=== PATIENT | male | born 1950 | race Two or more races ===

== ENCOUNTER → 2018-04-14 | Outpatient (CLI) | payer OTHER, MEDICAID | END | disposition home or self-care (01) | LOC: Rad HDHVI 08:02 | PROVIDERS: ATTEND Internal Medicine | DX: I70.0 Atherosclerosis of aorta (principal); I07.1 Rheumatic tricuspid insufficiency; I10 Essential (primary) hypertension; E78.5 Hyperlipidemia, unspecified; R06.09 Other forms of dyspnea | CPT/HCPCS: 93306 ==

== ENCOUNTER → 2018-04-24 | Outpatient (CLI) | payer OTHER, MEDICAID ==
[~2018-04-24] VITALS: Ht 182.9 cm; Wt 124.7 kg
[~2018-04-24] MED LIST: ADENOSINE 105 MG in GIVE UN-DILUTED 0 ML IV ONE; ADENOSINE 90 MG/30 ML INJ IV ONE
== END | disposition home or self-care (01) ==
LOC: Rad HDHVI 08:15
PROVIDERS: ATTEND Internal Medicine Cardiovascular Disease
DX: I10 Essential (primary) hypertension (principal); E78.5 Hyperlipidemia, unspecified; R63.8 Other symptoms and signs concerning food and fluid intake; I87.2 Venous insufficiency (chronic) (peripheral); L03.119 Cellulitis of unspecified part of limb; M25.559 Pain in unspecified hip
CPT/HCPCS: 78452; 93005; 96374; 96375; A9500; J0153

== ENCOUNTER 2018-10-05 09:12 | Emergency (ER) | payer OTHER, MEDICAID ==
[~2018-10-05] VITALS: Ht 182.9 cm; Wt 117.0 kg
[2018-10-05 09:48] LABS: Urine Bacteria NONE SEEN /hpf (None Seen); Urine Blood Negative /uL (Negative); Urine Specific Gravity 1.021 (1.001-1.035); Urine WBC 1 /hpf (0 - 3)
[2018-10-05 09:59] LABS: Hematocrit 47.5 % (41.0-53.0); Hemoglobin 15.8 g/dL (13.5-17.5); Mean Corpuscular Hemoglobin 32.5 pg (28.0-32.0); Mean Corpuscular Hgb Conc. 33.3 g/dL (32.0-36.0); Mean Corpuscular Volume 97.6 fL (80.0-100.0); Platelet Count (auto) 184 10^3/uL (140-450); Red Blood Cells 4.86 10^6/uL (4.5-5.90); Red Cell Distribution Width 13.1 % (11.8-14.3); White Blood Cell 15.3 10^3/uL (4.4-10.8)
[2018-10-05 10:03] LABS: Basophils % (manual) 0 (0.0-2.0); Blast Cells 0; Eosinophils % (manual) 0 (0-7); Metamyelocytes % 0; Myelocytes % 0; Promyelocytes % 0
[2018-10-05 10:09] LABS: Alanine Aminotransferase 41 U/L (16-61); Albumin 3.8 g/dL (3.4-5.0); Anion Gap 5 (5-15); Blood Urea Nitrogen 23 mg/dL (7-18); Calcium 8.8 mg/dL (8.5-10.1); Carbon Dioxide 26 mmol/L (21-32); Chloride 106 mmol/L (98-107); Glucose 155 mg/dL (74-106); Potassium 4.6 mmol/L (3.5-5.1); Sodium 137 mmol/L (136-145)
[2018-10-05 10:14] LABS: Alkaline Phosphatase 90 U/L (45-117); Aspartate Aminotransferase 28 U/L (15-37); BUN/Creatinine Ratio 21.5; Bilirubin, Total 0.3 mg/dL (0.2-1.0); GFR African American 88 mL/min; GFR Non-African American 73 mL/min; Total Protein 7.2 g/dL (6.4-8.2)
[2018-10-05] MEDS ORDERED: IOHEXOL 350 MG/ML 100ML IJ ONE (10:25)
[2018-10-05 12:00] VITALS: BP 146/98
[2018-10-05] MEDS ORDERED: MORPHINE SULFATE 4 MG/ML SYR/VIAL IV ONE (12:00)
[2018-10-05] MEDS ORDERED: ONDANSETRON HCL 4 MG/2 ML VIAL IV ONE (12:00)
[2018-10-05] MEDS ORDERED: cefTRIAXone SOD 1,000 MG VL IM ONE (12:45)
[2018-10-05] MEDS ORDERED: LIDOCAINE 1%HCL (LOCAL ANESTH) 10 ML MDV ONE (13:02)
[2018-10-05] MEDS ORDERED: LIDOCAINE 1% HCL (LOCAL ANESTH.) INJ 20ML MDV ID ONE (13:15)
[2018-10-05 13:26] LABS: Band Neutrophils % (manual) 3; Lymphocytes % (manual) 38 (10.0-50.0)
[2018-10-05 13:27] LABS: Monocytes % (manual) 1 (0-12); Reactive Lymphocytes 2
== END 2018-10-05 13:19 | disposition home or self-care (01) ==
LOC: ER 09:12
DX: M54.5 Low back pain (principal); E11.9 Type 2 diabetes mellitus without complications; M79.18 Myalgia, other site
CPT/HCPCS: 36415; 74177; 80053; 81001; 84484; 85007; 85027; 93005; 94761; 96372; 99284; J0696; J2001; Q9967

== ENCOUNTER 2018-12-21 11:44 | Emergency (ER) | payer OTHER, MEDICAID ==
[~2018-12-21] VITALS: Ht 182.9 cm; Wt 117.0 kg
[2018-12-21 12:52] VITALS: BP 115/72
== END 2018-12-21 13:41 | disposition home or self-care (01) ==
LOC: ER 11:44
DX: J02.9 Acute pharyngitis, unspecified (principal); E11.9 Type 2 diabetes mellitus without complications
CPT/HCPCS: 71046; 93005

== ENCOUNTER → 2019-02-17 | Outpatient (CLI) | payer OTHER, MEDICAID | END | disposition home or self-care (01) | LOC: LAB 13:19 | PROVIDERS: ATTEND Internal Medicine | DX: R94.4 Abnormal results of kidney function studies (principal); E11.9 Type 2 diabetes mellitus without complications | CPT/HCPCS: 36415; 82565 ==

== ENCOUNTER → 2019-02-19 | Outpatient (CLI) | payer OTHER, MEDICAID ==
[~2019-02-19] MED LIST changes: -ADENOSINE 105 MG in GIVE UN-DILUTED 0 ML IV ONE; -ADENOSINE 90 MG/30 ML INJ IV ONE; +IOHEXOL 350 MG/ML 100ML IJ ONE
[2019-02-19 08:45] VITALS: BP 136/78
[2019-02-19 09:30] VITALS: BP 129/85
--- NOTE | 2019-02-19 09:30 | NUR ---
IN TO CLINIC FOR CT ABDOMEN AND PELVIS AND CHEST RELATED TO ABDOMINAL AORTIC ANEURYSM. IV insertion IV access obtained, via clean sterile technique by inserting 18 gauge catheter at after attempt(s)BY PRANEETH LORENZ. . IV secured properly. No trauma to site. Patient tolerated procedure well. REVIEWED METFORMIN PRECAUTIONS AND GIVEN INSTRUCTION SHEET. TO CT SCAN AND TOLERATED WELL. IV SITE DCD AND SITE BENIGN POST USE. Discharge Instructions See e-MAR for any mediations given with this visit. Patient education given on disease process. Patient verbalized understanding. Previous labs reviewed. Patient discharged in stable condition with after care instructions.
== END | disposition home or self-care (01) ==
LOC: Rad HDHVI 08:25
PROVIDERS: ATTEND Internal Medicine
DX: I71.4 Abdominal aortic aneurysm, without rupture (principal); R91.1 Solitary pulmonary nodule; I70.0 Atherosclerosis of aorta; J47.9 Bronchiectasis, uncomplicated; J98.11 Atelectasis; K44.9 Diaphragmatic hernia without obstruction or gangrene
CPT/HCPCS: 71250; G0463; Q9967

== ENCOUNTER 2019-04-02 01:54 | Emergency (ER) | payer OTHER, MEDICAID ==
[~2019-04-02] VITALS: Ht 182.9 cm; Wt 117.9 kg
[2019-04-02] MEDS ORDERED: GLUCAGON HYDROCHLORIDE (RDNA) 1 MG VIAL IV ONE (02:30)
[2019-04-02] MEDS ORDERED: SODIUM CHLORIDE 0.9% 1,000 ML IV ONE (02:30)
[2019-04-02 05:05] VITALS: BP 160/102
== END 2019-04-02 06:50 | disposition home or self-care (01) ==
LOC: ER 02:00
DX: R09.89 Other specified symptoms and signs involving the circulatory and respiratory systems (principal); E11.9 Type 2 diabetes mellitus without complications
CPT/HCPCS: 70490; 96374; 99284; J1610; J7030

== ENCOUNTER → 2019-09-03 | Outpatient (CLI) | payer OTHER, MEDICAID ==
[2019-09-03 08:30] VITALS: BP 134/134
--- NOTE | 2019-09-03 08:34 | NUR ---
IN TO CLINIC FOR CTA ABDOMEN AND PELVIS. PT HAS KNOWN ABDOMINAL ANEURYSM. IV insertion IV access obtained, via clean sterile technique by inserting 20 gauge catheter at after attempt BY PRANEETH LORENZ. . IV secured properly. No trauma to site. Patient tolerated procedure well. STAT LABS DRAWN AND SENT.
--- NOTE | 2019-09-03 09:56 | NUR ---
LABS RETURNED. FOR CT SCAN NOW
--- NOTE | 2019-09-03 10:05 | NUR ---
RETURNED FROM CT. TOLERATED WELL.
--- NOTE | 2019-09-03 10:15 | NUR ---
EDUCATION AND TEACHING ON DISEASE PROCESS AND DIET MANAGEMENT BY PRANEETH LORENZ.
[2019-09-03 10:35] VITALS: BP 160/100
--- NOTE | 2019-09-03 10:35 | NUR ---
IV removal IV DC'd with sterile technique, catheter fully intact. Pressure dressing applied to site. Patient tolerated procedure well. Discharged with aftercare instructions per MD. NOTE: PT. INSTRUCTED TO HOLD METFORMIN X 48 HRS PER PROTOCOL. PT. GIVEN WRITTEN INST.
== END | disposition home or self-care (01) ==
LOC: Rad HDHVI 08:19
PROVIDERS: ATTEND Internal Medicine
DX: I71.4 Abdominal aortic aneurysm, without rupture (principal); R94.4 Abnormal results of kidney function studies
CPT/HCPCS: 36415; 82565; G0463; Q9967

== ENCOUNTER → 2019-12-27 | Outpatient (CLI) | payer OTHER, MEDICAID ==
[2019-12-27 10:15] VITALS: BP 119/83
[2019-12-27 11:20] VITALS: BP 129/86
--- NOTE | 2019-12-27 11:20 | NUR ---
[facility] Discharge Instructions See e-MAR for any mediations given with this visit. Patient education given on disease process. Patient verbalized understanding. Previous labs reviewed. Patient discharged in stable condition with after care instructions and follow up appointment. NOTE PT EDUCATED TO HOLD METFORMIN FOR 48HRS AND TO DRINK PLENTY OF FLUIDS OVER THE NEXT 24HRS, PT VERBALIZED UNDERSTANDING.
== END | disposition home or self-care (01) ==
LOC: Rad HDHVI 09:56
PROVIDERS: ATTEND Internal Medicine
DX: E11.9 Type 2 diabetes mellitus without complications (principal); R91.1 Solitary pulmonary nodule; R06.02 Shortness of breath; I71.4 Abdominal aortic aneurysm, without rupture
CPT/HCPCS: 71260; G0463; Q9967

== ENCOUNTER 2020-10-02 17:53 | Emergency (ER) | payer OTHER, MEDICAID ==
[~2020-10-02] VITALS: Ht 182.9 cm; Wt 127.0 kg
[2020-10-02 18:43] LABS: Hematocrit 48.9 % (41.0-53.0); Mean Corpuscular Hemoglobin 31.6 pg (28.0-32.0); Mean Corpuscular Hgb Conc. 32.6 g/dL (32.0-36.0); Mean Corpuscular Volume 96.7 fL (80.0-100.0); Platelet Count (auto) 220 10^3/uL (140-450); Red Blood Cells 5.06 10^6/uL (4.5-5.90); Red Cell Distribution Width 13.6 % (11.8-14.3); White Blood Cell 24.8 10^3/uL (4.4-10.8)
[2020-10-02] MEDS ORDERED: ONDANSETRON HCL 4 MG/2 ML VIAL IV ONE (18:45)
[2020-10-02] MEDS ORDERED: cefTRIAXone 1GM/50ML D5W 50 ML IV ONE (18:45)
[2020-10-02] MEDS ORDERED: TETANUS-DIPTH-ACEL PERTUSSIS 0.5ML SYR Tdap IM ONE (18:45)
[2020-10-02] MEDS ORDERED: MORPHINE SULFATE 4 MG/ML SYR/VIAL IV ONE (18:45)
[2020-10-02 18:49] LABS: Band Neutrophils % (manual) 0; Basophils % (manual) 0 (0.0-2.0); Blast Cells 0; Metamyelocytes % 0; Myelocytes % 0; Promyelocytes % 0
[2020-10-02 19:03] LABS: INR 1.07 (0.9-1.15); Partial Thromboplastin Time 24.2 sec (23.0-31.2)
[2020-10-02 19:23] LABS: Albumin 3.8 g/dL (3.4-5.0); BUN/Creatinine Ratio 11.6; Calcium 8.7 mg/dL (8.5-10.1); Potassium 3.7 mmol/L (3.5-5.1)
[2020-10-02 19:28] LABS: Total Protein 7.4 g/dL (6.4-8.2)
[2020-10-02] MEDS ORDERED: MIDAZOLAM DRIP 50 mg/50mL 50 ML IV SCH (19:30)
[2020-10-02] MEDS ORDERED: SUCCINYLCHOLINE CHLORIDE 20 MG/ML 10ML VIAL IV ONE ×2 (19:30→19:32)
[2020-10-02] MEDS ORDERED: ETOMIDATE (2MG/ML) 20ML VIAL IV ONE ×2 (19:30→19:32)
[2020-10-02] MEDS ORDERED: MIDAZOLAM DRIP 50 mg/50mL 50 ML IV ONE (19:32)
[2020-10-02] MEDS ORDERED: MIDAZOLAM HCL 5 MG/ML-1ML VIAL ONE (19:48)
[2020-10-02] MEDS ORDERED: MIDAZOLAM HCL 5 MG/ML-1ML VIAL IV ONE (20:00)
[2020-10-02 20:01] LABS: Eosinophils % (manual) 1 (0-7); Lymphocytes % (manual) 56 (10.0-50.0); Monocytes % (manual) 4 (0-12); Reactive Lymphocytes 4
[2020-10-02 20:10] VITALS: BP 90/65
== END 2020-10-02 19:12 | disposition short-term general hospital (02) ==
LOC: EDBD 17:53 → ER 17:57
DX: S02.80XA Fracture of other specified skull and facial bones, unspecified side, initial encounter for closed fracture (principal); S42.411A Displaced simple supracondylar fracture without intercondylar fracture of right humerus, initial encounter for closed fracture; S01.81XA Laceration without foreign body of other part of head, initial encounter; X58.XXXA Exposure to other specified factors, initial encounter; Y93.89 Activity, other specified; Y92.89 Other specified places as the place of occurrence of the external cause; Y99.8 Other external cause status
CPT/HCPCS: 31500; 36415; 70450; 70486; 71045; 72125; 73070; 80053; 85007; 85027; 85610; 85730; 90471; 90715; 96365; 96375; 99285; J0330; J0696; J2250; J2270; J2405; 94002

== ENCOUNTER → 2021-12-24 | Outpatient (CLI) | payer MEDICARE, MEDICAID | END | disposition home or self-care (01) | LOC: Rad HDHVI 09:58 | PROVIDERS: ATTEND Internal Medicine | DX: E78.5 Hyperlipidemia, unspecified (principal); I51.7 Cardiomegaly | CPT/HCPCS: 93306 ==

== ENCOUNTER → 2022-01-03 | Outpatient (CLI) | payer MEDICARE, MEDICAID ==
[2022-01-03 15:30] LABS: BUN/Creatinine Ratio 18.6; Calcium 8.7 mg/dL (8.5-10.1); Potassium 3.9 mmol/L (3.5-5.1)
[2022-01-03 15:33] LABS: Bilirubin, Total 0.4 mg/dL (0.2-1.0); Total Protein 7.2 g/dL (6.4-8.2)
== END | disposition home or self-care (01) ==
LOC: LAB 10:49
PROVIDERS: ATTEND Internal Medicine
DX: R94.4 Abnormal results of kidney function studies (principal)
CPT/HCPCS: 36415; 80053

== ENCOUNTER → 2022-01-04 | Outpatient (CLI) | payer MEDICARE, MEDICAID ==
[2022-01-04 08:10] VITALS: BP 130/88
[2022-01-04 08:40] VITALS: BP 131/92
== END | disposition home or self-care (01) ==
LOC: Rad HDHVI 08:01
PROVIDERS: ATTEND Internal Medicine
DX: I71.4 Abdominal aortic aneurysm, without rupture (principal); K57.90 Diverticulosis of intestine, part unspecified, without perforation or abscess without bleeding; K44.9 Diaphragmatic hernia without obstruction or gangrene; N28.1 Cyst of kidney, acquired; N40.0 Benign prostatic hyperplasia without lower urinary tract symptoms; I70.0 Atherosclerosis of aorta
CPT/HCPCS: 71260; 74177; G0463; Q9967

== ENCOUNTER → 2023-06-06 | Outpatient (CLI) | payer MEDICARE, MEDICAID | END | disposition home or self-care (01) | LOC: Rad HDHVI 10:34 | PROVIDERS: ATTEND Internal Medicine Cardiovascular Disease | DX: I10 Essential (primary) hypertension (principal); E78.5 Hyperlipidemia, unspecified | CPT/HCPCS: 93306 ==

== ENCOUNTER → 2023-06-17 | Outpatient (CLI) | payer MEDICARE, MEDICAID ==
[~2023-06-17] VITALS: Ht 182.9 cm; Wt 113.4 kg
[~2023-06-17] MED LIST changes: +ADENOSINE 90 MG/30 ML INJ IV ONE; +ADENOSINE 95 MG in GIVE UN-DILUTED 0 ML IV ONE; -IOHEXOL 350 MG/ML 100ML IJ ONE
== END | disposition home or self-care (01) ==
LOC: HDHVI->DVH 12:41
PROVIDERS: ATTEND Internal Medicine Cardiovascular Disease
DX: R63.5 Abnormal weight gain (principal); I11.0 Hypertensive heart disease with heart failure; I50.9 Heart failure, unspecified; E11.9 Type 2 diabetes mellitus without complications; E78.5 Hyperlipidemia, unspecified
CPT/HCPCS: 78452; 93005; 96374; 96375; A9500; J0153

== ENCOUNTER → 2023-07-02 | Outpatient (CLI) | payer MEDICARE, MEDICAID | END | disposition home or self-care (01) | LOC: Rad HDHVI 09:01 | PROVIDERS: ATTEND Internal Medicine Cardiovascular Disease | DX: I10 Essential (primary) hypertension (principal) | CPT/HCPCS: 93880 ==

== ENCOUNTER → 2023-08-11 | Outpatient (CLI) | payer MEDICARE, MEDICAID ==
[~2023-08-11] MED LIST changes: -ADENOSINE 90 MG/30 ML INJ IV ONE; -ADENOSINE 95 MG in GIVE UN-DILUTED 0 ML IV ONE; +AMIO200T33 PO; +APIX5TAB PO; +ATOR10TA52 PO; +CHOL50007 PO; +GABA-339 PO; +HYDR25TA5 PO; +METF-370 PO; +TRAM50TA2 PO; +TRAZ-227 PO; +TURM500C3 PO; +[UNRECOGNIZED DRUG - CODE] PO
[2023-08-11 10:52] VITALS: BP 135/78; PULSE 54; RESP 16; O2SAT 96
[2023-08-11 11:11] VITALS: BP 130/72; PULSE 54; RESP 16; O2SAT 96
== END | disposition home or self-care (01) ==
LOC: CHF HDHVI 10:44
PROVIDERS: ATTEND Internal Medicine Cardiovascular Disease
DX: Z01.818 Encounter for other preprocedural examination (principal); R94.31 Abnormal electrocardiogram [ECG] [EKG]; R06.02 Shortness of breath; R06.01 Orthopnea; I10 Essential (primary) hypertension; R07.9 Chest pain, unspecified
CPT/HCPCS: 36415; 80048; 85025; 85610; 85730; 93005; G0463

== ENCOUNTER 2023-08-14 06:54 | Day surgery (SDC) | payer MEDICARE, MEDICAID ==
[2023-08-11 12:04] LABS: Basophils # (auto) 0.1 10 ^3/uL (0-0.2); Basophils % (auto) 0.6 % (0.0-2.0); Eosinophils # (auto) 0.2 10 ^3/uL (0-0.8); Eosinophils % (auto) 1.5 % (0.0-7.0); Hematocrit 43.6 % (41.0-53.0); Hemoglobin 15.1 g/dL (13.5-17.5); Lymphocytes # (auto) 5.9 10 ^3/uL (0.4-5.4); Lymphocytes % (auto) 55.6 % (10.0-50.0); Mean Corpuscular Hemoglobin 33.6 pg (28.0-32.0); Mean Corpuscular Hgb Conc. 34.5 g/dL (32.0-36.0); Mean Corpuscular Volume 97.2 fL (80.0-100.0); Monocytes # (auto) 0.7 10 ^3/uL (0-1.3); Monocytes % (auto) 6.3 % (0.0-12.0); Neutrophils # (auto) 3.8 10 ^3/uL (1.6-8.6); Nucleated Red Blood Cells % 0.1 %; Red Blood Cells 4.49 10^6/uL (4.5-5.90); White Blood Cell 10.6 10^3/uL (4.4-10.8)
[2023-08-11 12:19] LABS: INR 1.14 (0.9-1.15); Partial Thromboplastin Time 31.3 SEC (24.5-34.5); Prothrombin Time 11.9 sec (9.3-11.8)
[2023-08-11 12:55] LABS: Anion Gap 6 (5-15); Calcium 9.7 mg/dL (8.5-10.1); Carbon Dioxide 32 mmol/L (20-30); Chloride 103 mmol/L (98-107); Potassium 4.3 mmol/L (3.5-5.1); Sodium 141 mmol/L (136-145)
[2023-08-11 13:01] LABS: Blood Urea Nitrogen 14 mg/dL (9-23); Glucose 107 mg/dL (74-106)
[~2023-08-14] VITALS: Ht 182.9 cm; Wt 113.4 kg
[2023-08-14] VITALS (13 sets, daily range): BP systolic 112–129; BP diastolic 49–99; PULSE 40–45; RESP 11–17; TEMP 98; O2SAT 91–94
[2023-08-14] MEDS ORDERED: IOHEXOL 350 MG/ML 100ML IJ ONE (07:44)
[2023-08-14] MEDS ORDERED: LIDOCAINE 2%HCL (LOCAL ANESTH.) INJ 20ML MDV ONE (07:44)
[2023-08-14] MEDS ORDERED: ANGIOMAX 250 MG VIAL IV ONE (08:33)
[2023-08-14] MEDS ORDERED: fentaNYL CITRATE 100 MCG/2 ML VL ONE (08:34)
[2023-08-14] MEDS ORDERED: MIDAZOLAM HCL 2MG/2ML 2ml VIAL (1mg/ml) ONE (08:34)
[2023-08-14] MEDS ORDERED: SODIUM CHL 0.9% 0 ML ONE (08:34)
== END 2023-08-14 13:36 | disposition home or self-care (01) ==
LOC: CATH 06:54
PROVIDERS: ATTEND Internal Medicine Cardiovascular Disease
DX: I72.2 Aneurysm of renal artery (principal); I25.41 Coronary artery aneurysm; I42.9 Cardiomyopathy, unspecified; I48.0 Paroxysmal atrial fibrillation; I49.5 Sick sinus syndrome
CPT/HCPCS: 36252; 36415; 80048; 85025; 85610; 85730; 93458; C1769; C1894; J1644; J2250; J3010; J7030; Q9967; 99152